=== PATIENT | male | born 1990 | race Hispanic/Latino ===

== ENCOUNTER 2017-09-02 21:50 | Emergency (ER) | payer SELFPAY ==
[2017-09-02 22:27] VITALS: BP 143/84; PULSE 87; RESP 17; TEMP 98.3; O2SAT 100
[2017-09-02 22:28] VITALS: BMI 21.9
--- NOTE | 2017-09-02 22:35 | ED PDOC ---
Arrival/HPI - General Historian: Patient - General Time Seen by Provider: 09/02/17 22:28 - History of Present Illness Narrative History of Present Illness (Text): 09/02/17 22:30 27yo male with no past medical history who present with left sided upper premolar toothache . Notes that he has been having pain for over a year now, but it became worse yesterday. Notes that he did not take any medication for the pain. He also report nasal congestion secondary to seasonal allergy. states he has been having the congestion intermittently for years now and the medication he used don't work. He is requesting a surgery to ablate or stop the congestion. States he is not congested currently. He denies fever, chills, any other complaint. (Anabelle Mcfarlane) Past Medical History - Provider Review Nursing Documentation Reviewed: Yes Family/Social History - Physician Review Nursing Documentation Reviewed: Yes Family/Social History: Unknown Family HX Allergies/Home Meds Allergies/Adverse Reactions: Allergies No Known Allergies Allergy (Verified 09/02/17 22:28) Review of Systems - Physician Review All systems were reviewed & negative as marked: Yes - Review of Systems Constitutional: Normal Eyes: Normal ENT: Other (Toothache) Respiratory: Normal Cardiovascular: Normal Gastrointestinal: Normal Genitourinary Male: Normal Musculoskeletal: Normal Skin: Normal Neurological: Normal Endocrine: Normal Hemo/Lymphatic: Normal Psychiatric: Normal Physical Exam Vital Signs Reviewed: Yes Temperature: Afebrile Blood Pressure: Normal Pulse: Regular Respiratory Rate: Normal Appearance: Positive for: Well-Appearing, Non-Toxic, Comfortable Pain Distress: None Mental Status: Positive for: Alert and Oriented X 3 - Systems Exam Head: Present: Atraumatic, Normocephalic Pupils: Present: PERRL Extroacular Muscles: Present: EOMI Conjunctiva: Present: Normal Mouth: Present: Moist Mucous Membranes, Normal Teeth (No loose jenn. No gum swelling) Nose (Internal): Present: Normal Inspection. No: Engorged, Edematous, Boggy, Rhinorrhea, Purulent Mucous Neck: Present: Normal Range of Motion Respiratory/Chest: Present: Clear to Auscultation, Good Air Exchange. No: Respiratory Distress, Accessory Muscle Use Cardiovascular: Present: Regular Rate and Rhythm, Normal S1, S2. No: Murmurs Abdomen: No: Tenderness, Distention, Peritoneal Signs Back: Present: Normal Inspection Upper Extremity: Present: Normal Inspection. No: Cyanosis, Edema Lower Extremity: Present: Normal Inspection. No: Edema Neurological: Present: GCS=15, CN II-XII Intact, Speech Normal Skin: Present: Warm, Dry, Normal Color. No: Rashes Psychiatric: Present: Alert, Oriented x 3, Normal Insight, Normal Concentration Vital Signs Temp Pulse Resp BP Pulse Ox 09/02/17 23:16 98.3 F 87 17 143/84 100 09/02/17 22:26 98.3 F 87 17 143/84 100 - Medication Orders Current Medication Orders: Discontinued Medications Amoxicillin (Amoxil 500 Mg Cap) 500 mg PO STAT STA PRN Reason: Protocol Stop: 09/02/17 22:30 Last Admin: 09/02/17 22:42 Dose: 500 mg Ibuprofen (Motrin Tab) 600 mg PO STAT STA Stop: 09/02/17 22:30 Last Admin: 09/02/17 22:41 Dose: 600 mg MAR Pain/Vitals Document 09/02/17 22:41 OCS (Rec: 09/02/17 22:41 OCS [id number]) Pain Reassessment Is This A Pain ReAssessment? No Sleep Is patient sleeping during reassessment? No Presence of Pain Presence of Pain Yes Pain Scale Used Pain Scale Used Numeric Location Left, Right or Bilateral Left Upper or Lower Upper Description Constant Aggravating Factors ADL's Disposition/Present on Arrival - Present on Arrival Any Indicators Present on Arrival: No History of DVT/PE: No History of Uncontrolled Diabetes: No Urinary Catheter: No History of Decub. Ulcer: No History Surgical Site Infection Following: None - Disposition Have Diagnosis and Disposition been Completed?: Yes Disposition Time: 22:40 Patient Plan: Discharge - Disposition Diagnosis: Dental caries, Nasal congestion Disposition: HOME/ ROUTINE Condition: STABLE Discharge Instructions (ExitCare): Dental Pain Additional Instructions: Follow up with a Dentist/ENT Return to Emergency department for any new or worsening symptoms Prescriptions: Amoxicillin [Amoxil 500 mg Cap] 500 mg PO TID #21 cap Ibuprofen [Motrin Tab] 600 mg PO Q6 #15 tab Loratadine/Pseudoephedrine [Claritin-D 24 Hour Tablet] 1 each PO DAILY #30 tab.er.24h Referrals: Dariel Rivera DO [Staff Provider] - Follow up with primary Yeny Taylor MD [Staff Provider] - Follow up with primary
== END 2017-09-02 23:26 | disposition home or self-care (01) ==
LOC: ED 21:50
DX: K02.9 Dental caries, unspecified (principal); R09.81 Nasal congestion